=== PATIENT | female | born 1980 | race Caucasian/White ===

== ENCOUNTER 2019-09-11 16:58 | Emergency (ER) | payer OTHER ==
[~2019-09-11] VITALS: Ht 134.6 cm; Wt 136.1 kg
[2019-09-11] MEDS ORDERED: TENORMIN100 M1 PO (17:44)
[2019-09-11] MEDS ORDERED: BACTRIM DS TAB1 EACH PO (22:26)
== END 2019-09-11 22:37 | disposition home or self-care (01) ==
LOC: ER 16:58
DX: N39.0 Urinary tract infection, site not specified (principal); R10.817 Generalized abdominal tenderness